=== PATIENT | male | born 1985 | race Caucasian/White ===

== ENCOUNTER 2021-02-07 18:03 | Emergency (ER) | payer MEDICAID ==
[~2021-02-07] VITALS: Ht 175.3 cm; Wt 72.7 kg
[2021-02-07] MEDS ORDERED: SULF1TAB49 PO (18:16)
[2021-02-07] MEDS ORDERED: NALO4SPR BOTHNARES (18:16)
[2021-02-07 18:48] VITALS: BP 114/78
== END 2021-02-07 18:14 | disposition home or self-care (01) ==
LOC: ER 18:04
DX: T40.1X1A Poisoning by heroin, accidental (unintentional), initial encounter (principal); L08.9 Local infection of the skin and subcutaneous tissue, unspecified; F11.90 Opioid use, unspecified, uncomplicated; Z79.2 Long term (current) use of antibiotics; Z79.899 Other long term (current) drug therapy; Y92.89 Other specified places as the place of occurrence of the external cause
CPT/HCPCS: 99283